=== PATIENT | male | born 1995 | race African-American/Black ===

== ENCOUNTER 2020-07-07 16:50 | Emergency (ER) | payer SELFPAY ==
[~2020-07-07 16:50] MED LIST: CEFTRIAXONE SODIUM 1 GM ONE; DOXYCYCLINE 100MG+NS 250ML IV ONE
== END 2020-07-07 17:59 | disposition home or self-care (01) ==
LOC: EDH 16:50
DX: A64 Unspecified sexually transmitted disease (principal)
CPT/HCPCS: 96372; 99283; J0696; J3490